=== PATIENT | male | born 1965 | race Two or more races ===

== ENCOUNTER 2023-01-03 05:51 | Day surgery (SDC) | payer OTHER ==
[~2023-01-03] VITALS: Ht 172.7 cm; Wt 116.1 kg
[~2023-01-03 05:51] MED LIST: COZAAR25 MG PO; VERELAN PM100 MG PO
[2023-01-03] MEDS ORDERED: NEURONTIN300 MG PO (12:41)
[2023-01-03] MEDS ORDERED: PERCOCET 5-3251 EACH PO (12:41)
[2023-01-03] MEDS ORDERED: KETO10TA2 PO (12:41)
== END 2023-01-03 18:00 | disposition home or self-care (01) ==
LOC: CIR.AMB 05:51
PROVIDERS: ATTEND Surgery
DX: K62.5 Hemorrhage of anus and rectum (principal); K64.8 Other hemorrhoids; K57.30 Diverticulosis of large intestine without perforation or abscess without bleeding; K64.2 Third degree hemorrhoids; Z86.010 Personal history of colon polyps; Z80.0 Family history of malignant neoplasm of digestive organs; Z20.822 Contact with and (suspected) exposure to COVID-19